=== PATIENT | male | born 1985 | race Caucasian/White ===

== ENCOUNTER → 2021-01-24 | Outpatient (CLI) | payer BC | LOC: MRI 12-26 15:00 | DX: M54.50 Low back pain, unspecified (principal); K21.9 Gastro-esophageal reflux disease without esophagitis; I51.9 Heart disease, unspecified | CPT/HCPCS: 72195 ==

== ENCOUNTER 2021-08-26 21:06 | Emergency (ER) | payer OTHER | END 2021-08-26 22:08 | disposition left against medical advice (07) | LOC: ER1 21:06 | DX: Z53.21 Procedure and treatment not carried out due to patient leaving prior to being seen by health care provider (principal) ==